=== PATIENT | male | born 1975 | race Two or more races ===

== ENCOUNTER 2017-07-31 05:05 | Emergency (ER) | payer OTHER ==
[~2017-07-31] VITALS: Ht 167.6 cm; Wt 117.5 kg
[2017-07-31 05:15] VITALS: BP 156/97
--- NOTE | 2017-07-31 05:24 | NUR ---
PT. ASHLEY BLEVINS ER BED 11
--- NOTE | 2017-07-31 05:25 | NUR ---
PT. PRESENTS TO ED WITH C/O COUGH AND BODY ACHES X 3 DAYS. PT. HX. DM, HTN. AAO X4, AMBULATORY WITH STEDAY GAIT. RESPIRATIONS ROOM AIR, EVEN AND UNLABORED. C/O NON PRODUCTIVE COUGH, BL LUNG CLEAR. VSS, ER MADE AWARE OF PT. STATUS.
--- NOTE | 2017-07-31 05:25 | NUR ---
Patient being evaluated by DR. LOUISE at bedside.
[2017-07-31] MEDS ORDERED: KETOROLAC 60 MG/2 ML VIAL IM ONE ×2 (05:40→05:52)
--- NOTE | 2017-07-31 06:10 | NUR ---
Patient discharged with v/s stable. Written and verbal after care instructions given and explained. Patient alert, oriented and verbalized understanding of instructions. Ambulatory with steady gait. All questions addressed prior to discharge. ID band removed. Patient advised to follow up with PMD. Rx of PREDNISOLONE 20 MG, MOTRIN 800 MG given. Patient educated on indication of medication including possible reaction and side effects. Opportunity to ask questions provided and answered.
[2017-07-31 06:11] VITALS: BP 143/72
== END 2017-07-31 06:10 | disposition home or self-care (01) ==
LOC: MED 05:05
DX: J11.1 Influenza due to unidentified influenza virus with other respiratory manifestations (principal); E11.9 Type 2 diabetes mellitus without complications; I10 Essential (primary) hypertension
CPT/HCPCS: 96372; 99283; J1885

== ENCOUNTER 2018-01-25 19:43 | Inpatient (IN) | payer OTHER ==
[~2018-01-25] VITALS: Ht 167.6 cm; Wt 121.7 kg
[2018-01-25 19:47] VITALS: BP 153/100
--- NOTE | 2018-01-25 19:50 | NUR ---
TO BED # 9 AMBULATORY, REPORT GIVEN TO LINDA HUTSON. Addendum: 01/25/18 at 2303 by TREASURE Amendment undone in ED - 01/25/18 at 2340 by TREASURE X-Ray at bedside.
--- NOTE | 2018-01-25 19:55 | NUR ---
PATIENT PRESENTS TO ED WITH LEFT KNEE CELLULITIS X5 DAYS. PATIENT STATES HE DID NOT HIT HIS KNEE ON ANYTHING. PATIENT STATES HE HAS NOT SCRATCHED THE SITE, BUT WAS IN THE SHOWER AND IT "STARTED OOZING" PATIENT STATES HE TOOK IBUPROFEN BEFORE COMING IN TODAY. PATIENT HAS HX OF DM BUT DOES NOT TAKE ANY MEDICATIONS. CURRENT BLOOD SUGAR IS 363. PT DENIES N/V/D; SKIN IS PINK/WARM/DRY; AAOX4 WITH EVEN AND STEADY GAIT; LUNGS CLEAR BL; HR EVEN AND REGULAR; PT DENIES ANY FEVER, CP, SOB, OR COUGH AT THIS TIME; PATIENT STATES PAIN OF 5/10 AT THIS TIME; VSS; PATIENT POSITIONED FOR COMFORT; HOB ELEVATED; BEDRAILS UP X1; BED DOWN. ER MD MADE AWARE OF PT STATUS.
--- NOTE | 2018-01-25 21:46 | NUR ---
Dr. Sawyer evaluating patient at bedside.
[2018-01-25] MEDS ORDERED: KETOROLAC 30 MG/ML VIAL IVP ONE (22:05)
[2018-01-25] MEDS ORDERED: NACL 0.9% 1,000 ML IV SCH (22:05)
[2018-01-25] MEDS ORDERED: ONDANSETRON 4 MG/2 ML VIAL IVP ONE (22:05)
[2018-01-25] MEDS ORDERED: VANCOMYCIN 1,000 MG in DEXTROSE 5% 250 ML IV ONE (22:05)
[2018-01-25] MEDS ORDERED: VANCOMYCIN 1,000 MG VIAL ONE (22:22)
--- NOTE | 2018-01-25 22:50 | NUR ---
Ultrasound at bedside.
[2018-01-25 22:58] LABS: BASOPHILS # (AUTO) 0.1 K/uL (0.00-0.22); BASOPHILS % (AUTO) 0.7 % (0.0-2.0); EOSINOPHILS # (AUTO) 0.1 K/uL (0-0.4); EOSINOPHILS % (AUTO) 0.9 % (0.0-4.0); HEMATOCRIT 29.8 % (36-52); HEMOGLOBIN 10.1 g/dL (12.0-18.0); LYMPHOCYTES # (AUTO) 1.6 K/uL (2.0-11.5); LYMPHOCYTES % (AUTO) 18.9 % (20.5-51.1); MEAN CORPUSCULAR HEMOGLOBIN 29 pg (27-31); MEAN CORPUSCULAR HGB CONC 34 g/dL (33-37); MEAN CORPUSCULAR VOLUME 85.2 fL (80-94); MONOCYTES # (AUTO) 0.8 K/uL (0.8-1.0); MONOCYTES % (AUTO) 9.2 % (1.7-9.3); NEUTROPHILS # (AUTO) 5.9 K/uL (1.8-7.7); NEUTROPHILS % (AUTO) 70.3 % (42.2-75.2); PLATELET COUNT (AUTO) 317 K/uL (140-450); RED CELL DISTRIBUTION WIDTH 14.4 % (11.6-13.7); WHITE BLOOD COUNT (AUTO) 8.4 K/uL (4.8-10.8)
--- NOTE | 2018-01-25 23:03 | NUR ---
X-Ray at bedside.
[2018-01-25 23:07] LABS: ANION GAP 10.7 (8-16); CARBON DIOXIDE 27.8 mmol/L (21-32); CREATININE 0.7 mg/dL (0.7-1.3); POTASSIUM 3.5 mmol/L (3.5-5.1)
[2018-01-25] MEDS ORDERED: ONDANSETRON 4 MG/2 ML VIAL IM/IVP PRN (23:10)
[2018-01-25] MEDS ORDERED: ACETAMINOPHEN 325 MG TAB PO PRN (23:10)
[2018-01-25] MEDS ORDERED: MORPHINE SULFATE 2 MG/ML SYR IVP PRN (23:10)
[2018-01-25] MEDS ORDERED: HYDROcodone/APAP 5/325 MG 1 TAB TAB PO PRN (23:10)
[2018-01-25] MEDS ORDERED: LORazepam 2 MG/ML VIAL IM/IVP PRN (23:10)
[2018-01-25] MEDS ORDERED: DOCUSATE SODIUM 100 MG GELCAP PO PRN (23:10)
[2018-01-25] MEDS ORDERED: ZOLPIDEM 5 MG TAB PO PRN (23:10)
[2018-01-25 23:13] LABS: ALBUMIN 2.3 g/dL (3.4-5.0); TOTAL BILIRUBIN 0.3 mg/dL (0.0-1.0)
--- NOTE | 2018-01-25 23:24 | NUR ---
Dr. Brice evaluating patient.
[2018-01-25 23:35] LABS: PROTHROMBIN TIME 10.3 secs (10.8-13.4)
[2018-01-25 23:46] LABS: MAGNESIUM 1.5 mg/dL (1.8-2.4); PHOSPHORUS 3.4 mg/dL (2.5-4.9); THYROID STIMULATING HORMONE 0.94 uIU/mL (0.34-3.74)
--- NOTE | 2018-01-25 23:46 | NUR ---
RECEIVED FROM ER PER JUAN. ABLE TO WALK FROM DOOR TO BED 2 . VERBALIZES WELL. NO SOB. DENIES ANY PAIN AT THIS TIME. CARE PLANS FOR THE NIGHT DISCUSSED WITH HIM. CALL LIGHT WITH IN REACH. ORIENTED TO ROOM AND CAREGIVERS. LEFT LEG WITH CELLULITIS. WITH CLOSED BLISTERS. NOTED WITH MULTIPLE PINPOINT SCARS TO LOWER EXTREMITIES. TELEMETRY MONITORING.
--- NOTE | 2018-01-25 23:56 | NUR ---
Pt report given to RAJESH HUTSON. Transfer of care at this time.
[2018-01-26] MEDS ORDERED: DEXTROSE 50% 50 ML SYR IVP PRN (00:10)
[2018-01-26] MEDS ORDERED: VANCOMYCIN PER PHARMACY MC PRN (00:15)
[2018-01-26] MEDS ORDERED: METOPROLOL 25 MG TAB PO SCH ×2 (00:20→00:45)
[2018-01-26] MEDS ORDERED: LISINOPRIL 10 MG TAB PO SCH ×3 (00:30→09:50)
[2018-01-26 00:38] VITALS: BP 152/89
[2018-01-26] MEDS: NACL 0.9% 1,000 ML IV SCH ×2 (00:56→15:48)
[2018-01-26] MEDS ORDERED: ALBUMIN HUMAN 5 % 250 ML IV SCH (01:00)
--- NOTE | 2018-01-26 02:35 | NUR ---
PT. SLEEPING AT THIS TIME. PROVIDED WITH SANDWICH EARLIER RT HUNGRY.PT. WITH HEATING PAD ORDER. WILL FAX REQUESTS FOR MEDICAL RECORDS FROM [facility] [place] AND [facility] [place] ORDERED.
[2018-01-26] MEDS ORDERED: PNEUMOCOCCAL VACCINE 23 MCG/0.5 ML VIAL IMVAC SCH (04:00)
[2018-01-26 04:23] VITALS: BP 156/89
[2018-01-26] MEDS ORDERED: DRY DRESSING TP PRN (04:30)
[2018-01-26] MEDS ORDERED: INTERDRY CLOTH TP SCH (04:30)
[2018-01-26] MEDS ORDERED: INTERDRY CLOTH TP PRN (04:30)
[2018-01-26 06:18] LABS: BASOPHILS % (AUTO) 0.3 % (0.0-2.0); EOSINOPHILS # (AUTO) 0.1 K/uL (0-0.4); HEMATOCRIT 30.5 % (36-52); HEMOGLOBIN 10.3 g/dL (12.0-18.0); LYMPHOCYTES # (AUTO) 1.3 K/uL (2.0-11.5); LYMPHOCYTES % (AUTO) 20.3 % (20.5-51.1); MEAN CORPUSCULAR HEMOGLOBIN 29 pg (27-31); MEAN CORPUSCULAR HGB CONC 34 g/dL (33-37); MEAN CORPUSCULAR VOLUME 84.9 fL (80-94); MONOCYTES # (AUTO) 0.6 K/uL (0.8-1.0); MONOCYTES % (AUTO) 9.8 % (1.7-9.3); NEUTROPHILS # (AUTO) 4.3 K/uL (1.8-7.7); NEUTROPHILS % (AUTO) 67.6 % (42.2-75.2); PLATELET COUNT (AUTO) 281 K/uL (140-450); RED BLOOD CELL COUNT(AUTO) 3.59 MIL/uL (4.20-6.10); RED CELL DISTRIBUTION WIDTH 14.3 % (11.6-13.7); WHITE BLOOD COUNT (AUTO) 6.4 K/uL (4.8-10.8)
[2018-01-26] MEDS: INSULIN LISPRO SLIDING SCALE 100 UNITS/ML VIAL SUBQ PRN ×4 (06:25→20:45)
[2018-01-26] MEDS: BLOOD GLUCOSE MONITORING 1 DEV DEV FS SCH ×4 (06:25→20:44)
--- NOTE | 2018-01-26 06:43 | NUR ---
PT.'S DRESSING TO OPEN WOUND LEFT LEG INTACT. CLEANSED WITH NS , PAT DRIED AND COVERED WITH GAUZE ORDERED. NO COMPLAINTS DONE. TELEMETRY MONITORING. BLOOD SUGAR AT THIS TIME 306 MG/DL PER FINGERSTICK. COVERED WITH REGULAR INSULIN. SLEPT WELL THIS SHIFT. NO COMPLAINTS DONE. DENIES ANY PAIN. JUST STATING "I AM HUNGRY " WHEN AWAKE. DIABETIC EDUCATION PROVIDED.
[2018-01-26 06:45] LABS: CARBON DIOXIDE 27.5 mmol/L (21-32); CREATININE 0.7 mg/dL (0.7-1.3); POTASSIUM 3.5 mmol/L (3.5-5.1)
[2018-01-26 06:55] LABS: MAGNESIUM 1.5 mg/dL (1.8-2.4); PHOSPHORUS 3.5 mg/dL (2.5-4.9)
[2018-01-26] MEDS ORDERED: MAG SULF 2000 MG/WATER PREMIX 50 ML IV ONE (07:20)
[2018-01-26] MEDS ORDERED: hydrALAZINE 20 MG/ML VIAL IVP PRN (07:20)
[2018-01-26] MEDS ORDERED: FUROSEMIDE 20 MG/2 ML VIAL IVP ONE (07:25)
--- NOTE | 2018-01-26 07:29 | NUR ---
RECEIVED REPORT FROM HUMAN RESOURCES SUPPORT SPECIALIST RN. PATIENT IS SLEEPING BUT AROUSABLE TO NAME. NO SIGNS AND SYMPTOMS OF ACUTE DISTRESS NOTED AT THIS TIME. HAS IV TO THE RIGHT FOREARM 20G INFUSING NS AT 60 ML/HR. SITE IS CLEAN, DRY, PATENT AND INTACT. HAS DRESSING TO THE LEFT LEG LATERAL TO THE KNEE, DRESSING IS CLEAN AND DRY. DISCUSSED PLAN OF CARE WITH PATIENT AND HE VERBALIZED UNDERSTANDING. BED IN LOWEST POSITION, SIDE RAILS UP X2, CALL LIGHT WITHIN REACH. WILL CONTINUE TO MONITOR.
[2018-01-26 08:00] VITALS: BP 144/90
[2018-01-26] MEDS: metFORMIN 500 MG TAB PO SCH ×2 (08:11→18:50)
--- NOTE | 2018-01-26 09:30 | NUR ---
CARBONATOR HAD TO REMOVE PATIENTS DRESSING TO PERFORM ULTRASOUND BEHIND THE KNEE. APPLIED NEW DRESSING. PATIENT TOLERATED WELL.
[2018-01-26] MEDS ORDERED: FUROSEMIDE 20 MG/2 ML VIAL IVP SCH (09:51)
[2018-01-26] MEDS ORDERED: metFORMIN 500 MG TAB PO SCH (09:51)
[2018-01-26] MEDS ORDERED: VANCOMYCIN 1,500 MG in DEXTROSE 5% 500 ML IV SCH (10:00)
[2018-01-26] MEDS: VANCOMYCIN 1,250 MG in NACL 0.9% 250 ML IV SCH ×2 (10:05→18:50)
[2018-01-26] MEDS: MAGNESIUM SULFATE 1GM in DEXTROSE 5% 100 ML PREMIX IV SCH ×2 (11:00→12:29)
[2018-01-26 12:00] VITALS: BP 167/100
--- NOTE | 2018-01-26 12:34 | NUR ---
HUNG PATIENTS MAG RIDER. IT WAS LATE DUE TO VANCO INFUSING PRIOR.
[2018-01-26] MEDS: NACL 0.9% IRR 250 ML BOTTLE IR SCH (13:53)
[2018-01-26] MEDS: DRY DRESSING TP SCH (13:53)
--- NOTE | 2018-01-26 14:40 | NUR ---
PATIENT RESTING IN BED. DENIES PAIN. HAS NO SIGNS AND SYMPTOMS OF ACUTE DISTRESS NOTED AT THIS TIME.
[2018-01-26 16:00] VITALS: BP 153/93
--- NOTE | 2018-01-26 17:50 | NUR ---
COLLECTED URINE FROM PATIENT.
[2018-01-26 18:11] LABS: APPEARANCE,URINE CLEAR (CLEAR); BILIRUBIN,URINE NEGATIVE (NEGATIVE); BLOOD, URINE NEGATIVE (NEGATIVE); COLOR,URINE YELLOW (YELLOW); LEUKOCYTE ESTERASE ,URINE NEGATIVE (NEGATIVE); NITRITE, URINE NEGATIVE (NEGATIVE); UGLUCOSE 2+ (NEGATIVE)
[2018-01-26 18:20] LABS: BARBITURATE, URINE NEG. ng/ml (NEG <=200); BENZODIAZEPINE, URINE NEG. ng/mL (NEG <=200); CANNABINOID, URINE NEG. ng/mL (NEG <=50); COCAINE, URINE NEG. ng/mL (NEG <=300); OPIATE, URINE NEG. ng/mL (NEG <=2000); PHENCYCLIDINE SCREEN,URINE NEG. ng/mL (NEG <=25); RBC,URINE 0-5 (RARE) /HPF (0-5); WBC,URINE 0-5 (RARE) /HPF (0-5)
--- NOTE | 2018-01-26 19:21 | NUR ---
ENDORSED PATIENT TO ANIMAL GENETICIST RN FOR CONTINUITY OF CARE. PATIENT IN STABLE CONDITION.
--- NOTE | 2018-01-26 19:30 | NUR ---
RECEIVED FROM AM RN IN BED AWAKE AND WATCHING TV. NO COMPLAINTS DONE. TELEMETRY MONITORING. DENIES PAIN AT THIS TIME. CARE PLANS FOR THE NIGHT DISCUSSED WITH HIM. A/O X 4. ROM X 4. ENCOURAGED TO CALL FOR ANY HELP HE MAY NEED. BED ALARM ON. DX. LEFT LEG CELLULITIS. IVF SITE TO RIGHT FOREARM INTACT AND NO INFILTRATION.
[2018-01-26 20:31] VITALS: BP 148/94
--- NOTE | 2018-01-26 22:00 | NUR ---
PT. STILL AWAKE AND WATCHING TV. ABLE TO USE CALL LIGHT FOR SIMPLE NEEDS. NO SOB. DENIES PAIN.
[2018-01-27] VITALS (7 sets, daily range): BP systolic 127–167; BP diastolic 68–97
--- NOTE | 2018-01-27 | NUR ---
SLEEPING WELL. NO RESTLESSNESS NOTED. CALL LIGHT WITH IN REACH. TELEMETRY MONITORING.
[2018-01-27] MEDS: VANCOMYCIN 1,250 MG in NACL 0.9% 250 ML IV SCH ×3 (00:13→16:45)
[2018-01-27] MEDS: NACL 0.9% IRR 250 ML BOTTLE IR SCH ×2 (00:13→16:16)
[2018-01-27] MEDS: NACL 0.9% 1,000 ML IV SCH (00:26)
--- NOTE | 2018-01-27 04:00 | NUR ---
PT. USING URINAL TO URINATE. NO COMPLAINTS DONE. ABLE TO VERBALIZE WELL. CALL LIGHT WITH IN REACH.
[2018-01-27] MEDS: BLOOD GLUCOSE MONITORING 1 DEV DEV FS SCH ×4 (06:01→21:17)
[2018-01-27] MEDS: INSULIN LISPRO SLIDING SCALE 100 UNITS/ML VIAL SUBQ PRN ×4 (06:02→21:39)
--- NOTE | 2018-01-27 06:11 | NUR ---
PT. ADMINISTERED HYDRALAZINE IVP 10 MG RT BP 167/95 AT 0443. PRESENTLY RE-ASSESSED BP AT 155/97. BLOOD SUGAR PER FINGERSTICK 300 MG/DL. ADMINISTERED RISS HUMALOG ORDERED SLEPT WELL THIS SHIFT. NO SOB. NO PAIN COMPLAINTS DONE THIS SHIFT. WOUND CULTURE FOR AEROBIC AND ANAROBIC SPECIMEN COLLECTED AND SENT TO LABORATORY.
--- NOTE | 2018-01-27 06:42 | NUR ---
PT. SLEEPING. CALL LIGHT WITH IN REACH . AM PERSONAL HYGIENE RENDERED. NO COMPLAINTS DONE. TELEMETRY MONITORING.
--- NOTE | 2018-01-27 07:15 | NUR ---
RECEIVED REPORT FROM THE CRM ANALYST NURSE AT BEDSIDE FOR CONTINUITY OF CARE. PT IS SLEEPING. PER CRM ANALYST PT IS AOX4, SR, AMBULATES WITH VERY LITTLE ASSIST, USES THE URINAL. SKIN L LEG CELLULITIS. PT HAS KPAD FOR THE LEG. IV ON FA 22G NS AT 60ML INFUSING. EMPTIED 600ML OF CLEAR PALE URINE. WILL CONTINUE TO ASSESS PT.
--- NOTE | 2018-01-27 07:40 | NUR ---
WOKE UP PT TO DO V/S. AOx4. INTRODUCED MYSELF AND UPDATED THE BOARD. PT V/S: BP IS SLIGHTLY ELEVATED 158/86. PT FELL ASLEEP WHILE DOING V/S. RESP 24 SNORING AND PERIODS OF HOLDING HIS BREATH. DENIES PAIN. EMPTIED ANOTHER 600ML OF CLEAR, PALE URINE.
[2018-01-27] MEDS: metFORMIN 500 MG TAB PO SCH ×2 (08:44→16:45)
[2018-01-27] MEDS: LISINOPRIL 10 MG TAB PO SCH (08:45)
--- NOTE | 2018-01-27 08:52 | NUR ---
PT SLEEPING. WOKE UP PT FOR MEDS. ADMINISTERED SCHEDULED MEDS INCLUDING VANCO. PT TOLERATED WELL. CLEARED HIS TRAY. ATE 100% OF BREAKFAST AND FINISHED A PITCHER OF WATER. REPLACED A FULL PITCHER OF WATER. NO COMPLAINTS AT THIS TIME. WILL CONTINUE TO MONITOR PT.
--- NOTE | 2018-01-27 09:25 | NUR ---
PATIENT HAS BEEN SCREENED AND CATEGORIZED HIGH NUTRITION RISK. PATIENT WILL BE SEEN WITHIN 1-2 DAYS OF ADMISSION. 01/25/18 01/27/[address]
[2018-01-27 09:53] LABS: BASOPHILS % (AUTO) 0.5 % (0.0-2.0); EOSINOPHILS # (AUTO) 0.1 K/uL (0-0.4); EOSINOPHILS % (AUTO) 1.9 % (0.0-4.0); HEMATOCRIT 33.1 % (36-52); HEMOGLOBIN 11.5 g/dL (12.0-18.0); LYMPHOCYTES # (AUTO) 1.2 K/uL (2.0-11.5); MEAN CORPUSCULAR HEMOGLOBIN 29 pg (27-31); MEAN CORPUSCULAR HGB CONC 35 g/dL (33-37); MEAN CORPUSCULAR VOLUME 83.4 fL (80-94); MONOCYTES # (AUTO) 0.3 K/uL (0.8-1.0); MONOCYTES % (AUTO) 5.8 % (1.7-9.3); NEUTROPHILS # (AUTO) 4.2 K/uL (1.8-7.7); NEUTROPHILS % (AUTO) 71.8 % (42.2-75.2); PLATELET COUNT (AUTO) 321 K/uL (140-450); RED BLOOD CELL COUNT(AUTO) 3.97 MIL/uL (4.20-6.10); RED CELL DISTRIBUTION WIDTH 14.6 % (11.6-13.7); WHITE BLOOD COUNT (AUTO) 5.9 K/uL (4.8-10.8)
[2018-01-27 10:09] LABS: ANION GAP 11.3 (8-16); CARBON DIOXIDE 28.2 mmol/L (21-32); CREATININE 0.8 mg/dL (0.7-1.3); POTASSIUM 3.5 mmol/L (3.5-5.1)
--- NOTE | 2018-01-27 10:20 | NUR ---
CHACE, WOUND CARE NURSE CAME AND SAW PT. CHACE RECOMMENDED I&D ON L CELLULITIS. PER US, 3.0 CM FLUID COLLECTION. IT IS OOZING. WILL LET MD. [place] [facility] [place]AME AND GAVE TO DR FERNANDEZ.
--- NOTE | 2018-01-27 10:43 | NUR ---
LING MIXON. CONTINUE WITH CURRENT REGIMEN.
--- NOTE | 2018-01-27 11:00 | NUR ---
WOUND CARE EVALUATION NOTES: REASON FOR EVALUATION: LLE CELLULITIS SKIN ASSESSMENT DONE ON THIS 42 Y/O MALE PATIENT ADMITTED TO [facility], WITH INITIAL DIAGNOSIS OF LLE CELLULITIS. NO PAST MEDICAL HISTORY AVAILABLE AND PT. DOEST WANT TO ANSWER ANY MEDICAL QUESTIONS. PT IS AAX4. ALL ABOVE INFORMATION WAS OBTAINED FROM THE ADMISSION H&P. WOUND CULTURE PENDING, WBC 5.9, H/H 11.5/33.1, GLUCOSE 383 AND ALBUMIN 2.8. SKIN WARM TO TOUCH WNL, +1 EDEMA TO BLE ,NO HAIR GROWTH AND BILATERAL PEDAL PULSES PRESENT. MULTIPLE BODY TATTOO. PLAN OF CARE DISCUSSED WITH PT AND PRIMARY NURSE. INTEGUMENTARY: TRUNK, BACK, UE AND LE: SKIN RASHES, NO C/O ITCHINESS LEFT MID THIGH TO LEFT KNEE AREA ERYTHEMA, INFECTED ABSCESS WITH 2X3.5 CM TO LEFT LATERAL KNEE, PURULENT DRAINAGE WITH MILD ODOR, C/O PAIN 2/10 BEARABLE. RECOMMENDATIONS: -SURGEON TO CONSULT FOR POSSIBLE I&D -CLEANSE LEFT KNEE ABSCESS WITH NS. PAT DRY, APPLY BACITRACIN , COVER WITH DRY DRESSING QD AND PRN IF SOILING. -TURN AND REPOSITION PATIENT Q2H -ASSESS AND MONITOR SKIN CONDITION DURING POSITION CHANGE -OFFLOAD BILATERAL HEELS BY PLACING PILLOWS UNDER CALVES AT ALL TIMES, UNLESS OTHERWISE CONTRAINDICATED -KEEP SKIN CLEAN AND DRY AT ALL TIMES. RECOMMENDATIONS DISCUSSED WITH PRIMARY RN WILL FOLLOW UP PATIENT Q 7 -10 DAYS AND PRN. PLEASE CONTACT WOUND CARE NURSE FOR ANY CONCERNS AND CHANGES IN WOUND CONDITION
[2018-01-27] MEDS ORDERED: MAG SULF 2000 MG/WATER PREMIX 50 ML IV ONE (11:20)
[2018-01-27] MEDS ORDERED: METOPROLOL 25 MG TAB PO SCH (11:30)
--- NOTE | 2018-01-27 12:00 | NUR ---
PT FINISHED LUNCH 95%. FINISHED ANOTHER PITCHER OF H20. REFILL DONE. PT WOULD LIKE TO TAKE A SHOWER. WILL ASK DR. BUSTOS INFILTRATED. WILL HAVE TO START ANOTHER IV. WILL WAIT AFTER LUNCH WHEN I DO THE WOUND CARE.
--- NOTE | 2018-01-27 14:35 | NUR ---
01/27/18 RD INITIAL ASSESSMENT COMPLETED PLEASE REFER TO NUTRITION ASSESSMENT UNDER CARE ACTIVITY FOR ESTIMATED NUTRITIONAL NEEDS. 1. CONTINUE CCHO 60 GM DIET TOLERATED 2. PROVIDE DIABETES EDUCATION FOR FOLLOW UP VISIT 3. RD TO FOLLOW-UP 3-5 DAYS, MODERATE RISK GUSTAVO BENDER, RD
--- NOTE | 2018-01-27 15:00 | NUR ---
CLINICAL DOCUMENTATION MANAGER GOT PT UP AND IN A CHAIR. CHANGED ALL LINENS. PT DOES NOT WANT TO USE THE KPAD. MAKES HIM "HOT". PT IS MS NOW. GOT HIM FRESH TOWELS AND FRESH GOWN AND BODY SOAP. PT IS IN THE BATHROOM AT THIS TIME. WILL CONTINUE TO MONITOR PT.
--- NOTE | 2018-01-27 15:10 | NUR ---
PT IN THE SHOWER.
[2018-01-27] MEDS: DRY DRESSING TP SCH (16:00)
--- NOTE | 2018-01-27 16:30 | NUR ---
AFTER SHOWER, WOUND CARE DONE. IV RESTARTED. NEW IV SITE L HAND 22G. IVF INFUSING. PT TOLERATED WELL. WILL CONTINUE TO MONITOR PT.
--- NOTE | 2018-01-27 16:45 | NUR ---
VANCO GIVEN. METFORMIN GIVEN. INSULIN COVERAGE 4U GIVEN FOR BS 217. PT TOLERATED WELL. WILL CONTINUE TO MONITOR PT.
--- NOTE | 2018-01-27 19:25 | NUR ---
ENDORSED PT TO THE NEUROPATHOLOGIST NURSE AT BEDSIDE FOR CONTINUITY OF CARE. PT IN STABLE CONDITION.
--- NOTE | 2018-01-27 19:26 | NUR ---
RECEIVED REPORT FROM THE DAY SHIFT NURSE ROMINA-RN AT BEDSIDE. PT IS SLEEPING. PER DAY SHIFT NURSE PT IS AOX4, ON ROOM AIR, AMBULATES WITH VERY LITTLE ASSIST, USES THE URINAL. IV ON FA 22G NS AT 60ML/HR. SKIN L LEG CELLULITIS-WRAPPED IN DRESSING. PT HAS K-PAD FOR THE LEG. UPDATED WHITE BOARD. BED IN LOWEST POSITION, BED BREAKS ON, BOTH SIDE RAILS UP. BED SIDE TABLE AND CALL LIGHT WITHIN REACH. WILL CONTINUE TO MONITOR.
--- NOTE | 2018-01-27 20:00 | NUR ---
VITAL SIGNS TAKEN AND TOLERATED WELL. NO S/S OF RESPIRATORY DISTRESS OR DISCOMFORT NOTED AT THIS TIME. WILL CONTINUE TO MONITOR.
--- NOTE | 2018-01-27 20:40 | NUR ---
BLOOD GLUCOSE 206- WILL ADMINISTER INSULIN.
[2018-01-27] MEDS: METOPROLOL 25 MG TAB PO SCH (21:20)
[2018-01-27] MEDS: MAGNESIUM OXIDE 400 MG TAB PO SCH (21:20)
--- NOTE | 2018-01-27 21:25 | NUR ---
SCHEDULED MEDICATION GIVEN AND TOLERATED WELL. NO S/S OF RESPIRATORY DISTRESS OR DISCOMFORT. WILL CONTINUE TO MONITOR.
--- NOTE | 2018-01-27 21:40 | NUR ---
INSULIN GIVEN PER PROTOCOL. PT TOLERATED WELL. NO S/S OF RESPIRATORY DISTRESS OR DISCOMFORT NOTED AT THIS TIME. PT RETURNED BACK TO SLEEP. WILL CONTINUE TO MONITOR.
[2018-01-28] VITALS: BP 164/97
--- NOTE | 2018-01-28 | NUR ---
VITAL SIGNS TAKEN AND TOLERATED WELL. NO S/S OF RESPIRATORY DISTRESS OR DISCOMFORT NOTED AT THIS TIME. PT RETURNED BACK TO SLEEP. WILL CONTINUE TO MONITOR.
[2018-01-28] MEDS: NACL 0.9% 1,000 ML IV SCH ×2 (01:17→17:48)
[2018-01-28] MEDS: NACL 0.9% IRR 250 ML BOTTLE IR SCH ×2 (01:18→13:00)
[2018-01-28] MEDS: VANCOMYCIN 1,250 MG in NACL 0.9% 250 ML IV SCH ×3 (01:18→17:28)
--- NOTE | 2018-01-28 01:20 | NUR ---
SCHEDULED MEDICATION GIVEN AND TOLERATED WELL. NO S/S OF RESPIRATORY DISTRESS OR DISCOMFORT NOTED AT THIS TIME. PT CONTINUES TO SLEEP. WILL CONTINUE TO MONITOR.
--- NOTE | 2018-01-28 03:00 | NUR ---
PT CONTINUES TO SLEEP. NO S/S OF RESPIRATORY DISTRESS OR DISCOMFORT. WILL CONTINUE TO MONITOR.
[2018-01-28] MEDS: BLOOD GLUCOSE MONITORING 1 DEV DEV FS SCH ×4 (05:25→20:51)
--- NOTE | 2018-01-28 05:30 | NUR ---
BLOOD GLUCOSE 217. WILL ADMINISTER INSULIN.
[2018-01-28 06:22] LABS: T4 (THYROXINE) 6.6 ug/dL (4.5-12.0)
[2018-01-28] MEDS: INSULIN LISPRO SLIDING SCALE 100 UNITS/ML VIAL SUBQ PRN ×3 (06:48→17:30)
--- NOTE | 2018-01-28 06:48 | NUR ---
INSULIN COVERAGE GIVEN AND TOLERATED WELL. NO S/S OF RESPIRATORY DISTRESS OR DISCOMFORT NOTED AT THIS TIME. WILL CONTINUE TO MONITOR.
--- NOTE | 2018-01-28 07:35 | NUR ---
ENDORSED PT CARE TO DAY SHIFT NURSE CALEB FOR CONTINUITY OF CARE.
--- NOTE | 2018-01-28 07:36 | NUR ---
RECEIVED PT FROM PM NURSE FOR THE CONTINUITY OF CARE.N INTRODUCED SELF AND UPDATED BOARD. ALL SAFETY MEASURE IN PLACE. WILL CONTINUE TO MONITOR PT.
[2018-01-28 07:39] LABS: BASOPHILS % (AUTO) 0.1 % (0.0-2.0); EOSINOPHILS # (AUTO) 0.2 K/uL (0-0.4); EOSINOPHILS % (AUTO) 2.7 % (0.0-4.0); HEMOGLOBIN 12.1 g/dL (12.0-18.0); LYMPHOCYTES # (AUTO) 1.6 K/uL (2.0-11.5); LYMPHOCYTES % (AUTO) 23.5 % (20.5-51.1); MEAN CORPUSCULAR HEMOGLOBIN 29 pg (27-31); MEAN CORPUSCULAR HGB CONC 36 g/dL (33-37); MEAN CORPUSCULAR VOLUME 82.5 fL (80-94); MONOCYTES # (AUTO) 0.5 K/uL (0.8-1.0); MONOCYTES % (AUTO) 7.9 % (1.7-9.3); NEUTROPHILS # (AUTO) 4.4 K/uL (1.8-7.7); NEUTROPHILS % (AUTO) 65.8 % (42.2-75.2); PLATELET COUNT (AUTO) 420 K/uL (140-450); RED BLOOD CELL COUNT(AUTO) 4.12 MIL/uL (4.20-6.10); WHITE BLOOD COUNT (AUTO) 6.8 K/uL (4.8-10.8)
[2018-01-28 08:00] VITALS: BP 161/85
[2018-01-28 08:18] LABS: ANION GAP 11.2 (8-16); CARBON DIOXIDE 29.4 mmol/L (21-32); CREATININE 0.6 mg/dL (0.7-1.3); POTASSIUM 3.6 mmol/L (3.5-5.1)
[2018-01-28] MEDS: MAGNESIUM OXIDE 400 MG TAB PO SCH ×2 (09:16→20:23)
[2018-01-28] MEDS: metFORMIN 500 MG TAB PO SCH ×2 (09:17→17:28)
[2018-01-28] MEDS: METOPROLOL 25 MG TAB PO SCH ×2 (09:17→20:23)
[2018-01-28] MEDS: LISINOPRIL 10 MG TAB PO SCH (09:20)
--- NOTE | 2018-01-28 09:30 | NUR ---
ADMINISTERED MEDS ORDERED . PT ASKED FOR PAIN MEDS, DENIES ANY PAIN. PT HAS THE CELLULITIS OF THE LEFT LEG. INSTRUCTED PT TO USE CALL LIGHT IF HE NEEDS ANY HELP. PT STATES HE CAN AMBULATE, INSTRUCTED HIM TO ASK FOR HELP EVEN IF HE CAN GO TO RESTROOM. FALL RISK PRECAUTION ON PLACE. BED AT LOW POSITION. SIDE RAILS UPX2. WILL CONTINUE TO MONITOR PT.
--- NOTE | 2018-01-28 11:30 | NUR ---
CHECKED ON PT. PT SLEEPING AT THIS TIME. NO SIGN OF DISTRESS. BS NOTED. NEEDS INSULIN. ALL SAFETY MEASURE IN PLACE . WILL CONTINUE TO MONITOR PT.
[2018-01-28] MEDS: DRY DRESSING TP SCH (13:00)
[2018-01-28] MEDS: BACITRACIN OINT 15000 UNITS/30 GM TUBE TP SCH (13:00)
--- NOTE | 2018-01-28 13:40 | NUR ---
CHANGED THE WOUND DRESSING ORDERED PER WOUND NURSE INSTRUCTION. WOUND HAS MILD ODOR,MEDIUM SS DRAINAGE, BUT THE BED AROUND THE WOUND IS PINKISH. PT TOLERATED WELL DRESSING CHANGE. NO COMPLAIN OF PAIN. LOWERED THE BED, RAISED THE SIDE RAILS UPX2. PER PT, WOUND IS LESS DRAINING THAN YESTERDAY. WILL CONTINUE TO MONITOR THE PT.
[2018-01-28 16:00] VITALS: BP 150/88
--- NOTE | 2018-01-28 16:00 | NUR ---
CHECKED ON PT. BS 346. ADMINISTERED 8 UNITS. REQUIRES INSULIN ON SLIDING SCALE. NO SIGN OF DISTRESS. WILL CONTINUE TO MONITOR THE PT.
--- NOTE | 2018-01-28 17:34 | NUR ---
ADMINISTERED VANCOMYCIN TO PT ORDERED. PT TOLERATED WELL. PT SLEEP AT THIS TIME. DENIES ANY PAIN. ASKED PTB TO CHANGE THE POSITION SO THAT IV LINE REMAINS INTACT, PT SLEEPING WITH IV UNDERNEATH . PT VERBALIZED UNDERSTANDING. ALL SAFETY MEASURE IN PLACE. WILL CONTINUE TO MONITOR PT.
--- NOTE | 2018-01-28 19:05 | NUR ---
ENDORSED PT TO PM NURSE. PT STABLE AT THIS TIME.
--- NOTE | 2018-01-28 19:06 | NUR ---
REPORT RECEIVED FROM AM NURSE. PT IN STABLE CONDITION. AAOX4. INTRODUCED SELF TO PT AND BOARD UPDATED. SAFETY MEASURES IN PLACE. BED LOCKED IN LOW POSITION. CALL SANTANA WITHIN REACH. WILL CONTINUE TO MONITOR.
--- NOTE | 2018-01-28 20:20 | NUR ---
PM MEDS GIVEN. PT TOLERATED WELL.
--- NOTE | 2018-01-28 21:50 | NUR ---
OBTAINED CONSENT FOR PROCEDURE WITH DR. BASHIR FOR INCISION AND DRAINAGE OF ABSCESS OF LEFT LEG.
--- NOTE | 2018-01-29 00:15 | NUR ---
VS STABLE. PT NOT IN ANY ACUTE DISTRESS. PT ASLEEP BUT AROUSABLE.
[2018-01-29] MEDS: VANCOMYCIN 1,250 MG in NACL 0.9% 250 ML IV SCH ×3 (01:28→16:55)
[2018-01-29] MEDS: NACL 0.9% IRR 250 ML BOTTLE IR SCH ×2 (01:32→13:00)
--- NOTE | 2018-01-29 03:15 | NUR ---
PT ASLEEP RIGHT LATERAL. CHEST EXPANSION VISIBLE. WILL CONTINUE TO MONITOR.
--- NOTE | 2018-01-29 05:15 | NUR ---
PT ASLEEP CHANGED POSITION TO LEFT LATERAL. PT NOT IN ANY ACUTE DISTRESS.
[2018-01-29] MEDS: BLOOD GLUCOSE MONITORING 1 DEV DEV FS SCH ×4 (06:28→20:24)
[2018-01-29] MEDS: INSULIN LISPRO SLIDING SCALE 100 UNITS/ML VIAL SUBQ PRN ×2 (06:43→21:38)
[2018-01-29 07:01] LABS: BASOPHILS % (AUTO) 0.2 % (0.0-2.0); EOSINOPHILS # (AUTO) 0.2 K/uL (0-0.4); HEMATOCRIT 34.8 % (36-52); HEMOGLOBIN 12.2 g/dL (12.0-18.0); LYMPHOCYTES # (AUTO) 1.9 K/uL (2.0-11.5); LYMPHOCYTES % (AUTO) 23.8 % (20.5-51.1); MEAN CORPUSCULAR HEMOGLOBIN 29 pg (27-31); MEAN CORPUSCULAR HGB CONC 35 g/dL (33-37); MEAN CORPUSCULAR VOLUME 82.3 fL (80-94); MONOCYTES # (AUTO) 0.4 K/uL (0.8-1.0); MONOCYTES % (AUTO) 5.2 % (1.7-9.3); NEUTROPHILS # (AUTO) 5.3 K/uL (1.8-7.7); NEUTROPHILS % (AUTO) 67.8 % (42.2-75.2); PLATELET COUNT (AUTO) 407 K/uL (140-450); RED BLOOD CELL COUNT(AUTO) 4.23 MIL/uL (4.20-6.10); RED CELL DISTRIBUTION WIDTH 14.7 % (11.6-13.7); WHITE BLOOD COUNT (AUTO) 7.8 K/uL (4.8-10.8)
--- NOTE | 2018-01-29 07:10 | NUR ---
REPORT GIVEN TO AM NURSE. PT IN STABLE CONDITION.
--- NOTE | 2018-01-29 07:15 | NUR ---
RECEIVED PT FROM SPORTS LAWYER NURSEMOISES, PT IS ASLEEP LYING ON THE BED AND SIDE RAILS ARE UP AND CALL LIGHT WITHIN REACH. PT HAS AN IV LINE ON THE LEFT HAND G.22, INTACT WITH NS RUNNING AT 60ML/HR. PT HAS A LEFT KNEE ABSCESS AND IS SCHEDULED FOR AN I&D TODAY PER SPORTS LAWYER NURSE ENDORSEMENT. RESPIRATIONS EVEN AND NO SIGN OF DISTRESS NOTED. WILL CONTINUE TO MONITOR.
[2018-01-29 07:44] LABS: ANION GAP 6.7 (8-16); CARBON DIOXIDE 29.8 mmol/L (21-32); CREATININE 0.7 mg/dL (0.7-1.3); POTASSIUM 3.5 mmol/L (3.5-5.1)
[2018-01-29] MEDS: metFORMIN 500 MG TAB PO SCH ×2 (09:00→16:54)
[2018-01-29] MEDS: MAGNESIUM OXIDE 400 MG TAB PO SCH (09:00)
[2018-01-29] MEDS: LISINOPRIL 10 MG TAB PO SCH (09:01)
[2018-01-29] MEDS: METOPROLOL 25 MG TAB PO SCH ×2 (09:01→20:23)
[2018-01-29] MEDS: DEXT 5% / NACL 0.45% 1,000 ML IV SCH (11:20)
--- NOTE | 2018-01-29 11:44 | NUR ---
OR NURSE, PAVAN TOOK THE OPT AND WAS BROUGHT TO THE OR FOR THE I&D PROCEDURE. VITAL SIGNS TAKEN AND IS STABLE. NO SIGN OF DISTRESS NOTED ON THE PT.
--- NOTE | 2018-01-29 11:45 | NUR ---
PT WAS TAKEN BY LUCIO BROWNE NURSE AND WAS BROUGHT TO OR FOR THE INCISION AND DEBRIDEMENT OF THE LEFT KNEE. PT'S BLOOD GLUCOSE CHECK DONE RESULT IS 169. VITAL SIGNS TAKEN AND BP IS 161/90, RESPIRATION IS 18, O2 SAT IS AT 99% AND TEMP. IS AT 96.7. NO SIGN OF DISTRESS NOTED ON THE PT. PT HAS A NS RUNNING AT 60 ML/HR ON HIS LEFT HAND G. 22. PRE-OPERATIVE CHECKLIST DONE AND PT'S CONSENT WAS SIGNED BY THE PT AND IS IN THE CHART.
--- NOTE | 2018-01-29 12:10 | NUR ---
CASE MANAGEMENT PERSON CALLED AND INFORMED THAT THE PT WAS ACCPETED IN [facility] IN RM 9-A AND ACCEPTING PHYSICIAN IS DR. HARPER. ACKNOWLEDGED INFORMATION.
[2018-01-29] MEDS ORDERED: fentaNYL 0.05 MG/ML VIAL ONE (12:31)
[2018-01-29] MEDS ORDERED: MIDAZOLAM 2 MG/2 ML VIAL ONE (12:31)
[2018-01-29] MEDS ORDERED: MEPERIDINE 50 MG/ML SYR ONE (12:32)
[2018-01-29] MEDS ORDERED: SEVOFLURANE 250 ML BTL INH ONE (12:35)
[2018-01-29] MEDS ORDERED: SUCCINYLCHOLINE CHLORIDE 200 MG/10 ML VIAL IVP ONE (12:35)
[2018-01-29] MEDS ORDERED: PROPOFOL 200 MG/20 ML VIAL IV ONE (12:35)
[2018-01-29] MEDS: BACITRACIN OINT 15000 UNITS/30 GM TUBE TP SCH (13:00)
[2018-01-29] MEDS: DRY DRESSING TP SCH (13:00)
[2018-01-29] MEDS: NACL 0.9% 1,000 ML IV SCH ×2 (13:09→20:47)
[2018-01-29] MEDS ORDERED: ONDANSETRON 4 MG/2 ML VIAL IVP PRN (13:10)
[2018-01-29] MEDS ORDERED: BLOOD GLUCOSE MONITORING 1 DEV DEV FS SCH (13:10)
[2018-01-29] MEDS ORDERED: diphenhydrAMINE 50 MG/ML VIAL IVP PRN (13:10)
[2018-01-29] MEDS ORDERED: MEPERIDINE 25 MG/ML SYR IVP PRN (13:10)
[2018-01-29] MEDS ORDERED: HYDROmorphone 1 MG/ML AMP IVP PRN (13:10)
[2018-01-29] MEDS ORDERED: HYDROGEN PEROXIDE 3% 240 ML BTL TP ONE (13:12)
--- NOTE | 2018-01-29 14:30 | NUR ---
PT IS BACK TO ROOM ENDORSED BY OR NURSE, PAVAN, VITAL SIGNS TAKEN AND IS STABLE. NO SIGN OF DISTRESS NOTED. LEFT KNEE HAS A DRESSING IN PLACE. WILL MONITOR.
--- NOTE | 2018-01-29 14:45 | NUR ---
Industrial Engineer Note: I met with patient and spoke with him regarding tentative discharge plan to snf for iv/s and wound care. Per patient, he is in agreement with transfer to short term snf placement. He stated he would like to be transfer to a snf located in [place], [place]. I faxed inquiry to [facility], phone number . Per Jessica from [facility] / , patient has been accepted and can go to room 9A today, if patient is discharged, accepting physician is , per Jessica, she can arrange transportation for patient, charge nurse Bharathi made aware.
--- NOTE | 2018-01-29 15:12 | NUR ---
REPORTED TO DR. LOZADA THAT THE PT'S MG LEVEL IS LOW, 1.5, DR. LOZADA ACKNOWLEDGED AND SAID THAT SHE WILL PUT AN ORDER.
[2018-01-29] MEDS ORDERED: MAG SULF 2000 MG/WATER PREMIX 50 ML IV SCH (17:45)
--- NOTE | 2018-01-29 17:50 | NUR ---
PT HAS AN ORDERED MG BUT [facility] AVAIL[facility] MG [facility] PHARMACY IS ALREADY CLOSED. INFORMED CHARGE NURSE, NORA OF THE MG AND CHARGED NURSE SAID TO INFORM SENIOR FORMULATION SCIENTIST.
--- NOTE | 2018-01-29 18:40 | NUR ---
INFORMED BENJAMIN THAT THE PT HAS A MAGNESIUM ORDERED BUT NO MAGNESIUM AVAILABLE IN [facility] AND THAT PHARMACY IS ALREADY CLOSED. NURSE HEDGE FUND TRADER SAID THAT HE WILL BRING MAGNESIUM.
[2018-01-29] MEDS ORDERED: MAGNESIUM SULFATE 50% 1000 MG/2 ML VIAL IV ONE (19:22)
--- NOTE | 2018-01-29 19:40 | NUR ---
ENDORSED PT TO SACK SEWER NURSEEBER FOR CONTINUITY OF CARE. PT STILL HAS AN ONGOING VANCOMYCIN IV PB RUNNING. PT'S MAGNESIUM WAS HANDED TO RN, EBER. PT IS STABLE AT THIS TIME.
--- NOTE | 2018-01-29 19:45 | NUR ---
RECEIVED REPORT FROM DAY SHIFT RN, PATIENT SLEEPING IN BED, EASY TO AROUSE, NO S/S OF DISTRESS NOTED, RESPIRATION EVEN AND UNLABORED, ON ROOM AIR. IV PATENT AND INTACT, INFUSING FLUIDS WELL. DRESSING TO THE LEFT LEG CLEAN AND INTACT, PLAN OF CARE DISCUSSED, PATIENT VERBALIZED UNDERSTANDING. CALL LIGHT WITHIN REACH, SAFETY MEASURE ENSURED, WILL CONTINUE TO MONITOR.
[2018-01-29] MEDS ORDERED: LEVOFLOXACIN 750 MG/D5W PREMIX 150 ML IV SCH (20:00)
--- NOTE | 2018-01-29 22:05 | NUR ---
MAGNESIUM FINISHED. PATIENT TOLERATED WELL. WILL CONTINUE TO MONITOR.
[2018-01-29] MEDS ORDERED: NYSTATIN POW 100 MU/GM 15 GM BTL TP PRN (23:05)
[2018-01-29] MEDS ORDERED: Z-GUARD PASTE TP PRN (23:05)
[2018-01-30 00:02] VITALS: BP 140/67
[2018-01-30] MEDS: NYSTATIN POW 100 MU/GM 15 GM BTL TP SCH ×2 (00:24→13:03)
--- NOTE | 2018-01-30 00:25 | NUR ---
MYCOSTATIN NOT AVAILABLE, [employer]AT[employer] UNABLE TO GET THE MEDICATION.
[2018-01-30] MEDS: NACL 0.9% IRR 250 ML BOTTLE IR SCH ×2 (00:41→12:52)
--- NOTE | 2018-01-30 00:42 | NUR ---
I&D DONE ON 01/29. DR. BASHIR ORDERED TO IRRIGATE WOUND STARTING FROM 01/30 BIDWC.
[2018-01-30] MEDS: Z-GUARD PASTE TP SCH ×2 (00:51→12:55)
--- NOTE | 2018-01-30 03:09 | NUR ---
PATIENT IS SLEEPING, NO S/S OF DISTRESS NOTED, RESPIRATION EVEN AND UNLABORED, ON ROOM AIR. CALL LIGHT WITHIN REACH, SAFETY MEASURE ENSURED, WILL CONTINUE TO MONITOR.
[2018-01-30] MEDS: DEXT 5% / NACL 0.45% 1,000 ML IV SCH (04:12)
--- NOTE | 2018-01-30 06:06 | NUR ---
NO CHANGE IN CONDITION, PATIENT IS SLEEPING, NO S/S OF DISTRESS NOTED, RESPIRATION EVEN AND UNLABORED, ON ROOM AIR. CALL LIGHT WITHIN REACH, SAFETY MEASURE ENSURED, WILL CONTINUE TO MONITOR.
[2018-01-30] MEDS: BLOOD GLUCOSE MONITORING 1 DEV DEV FS SCH ×2 (06:28→11:37)
[2018-01-30 06:49] LABS: BASOPHILS % (AUTO) 0.2 % (0.0-2.0); EOSINOPHILS # (AUTO) 0.2 K/uL (0-0.4); EOSINOPHILS % (AUTO) 2.5 % (0.0-4.0); HEMATOCRIT 34.4 % (36-52); HEMOGLOBIN 12.1 g/dL (12.0-18.0); LYMPHOCYTES # (AUTO) 1.7 K/uL (2.0-11.5); LYMPHOCYTES % (AUTO) 20.4 % (20.5-51.1); MEAN CORPUSCULAR HEMOGLOBIN 29 pg (27-31); MEAN CORPUSCULAR HGB CONC 35 g/dL (33-37); MONOCYTES # (AUTO) 0.5 K/uL (0.8-1.0); MONOCYTES % (AUTO) 6.6 % (1.7-9.3); NEUTROPHILS # (AUTO) 5.8 K/uL (1.8-7.7); NEUTROPHILS % (AUTO) 70.3 % (42.2-75.2); PLATELET COUNT (AUTO) 447 K/uL (140-450); RED BLOOD CELL COUNT(AUTO) 4.15 MIL/uL (4.20-6.10); RED CELL DISTRIBUTION WIDTH 14.6 % (11.6-13.7); WHITE BLOOD COUNT (AUTO) 8.2 K/uL (4.8-10.8)
[2018-01-30 07:00] LABS: ANION GAP 9.7 (8-16); CARBON DIOXIDE 30.2 mmol/L (21-32); CREATININE 0.7 mg/dL (0.7-1.3); POTASSIUM 3.9 mmol/L (3.5-5.1)
[2018-01-30 07:09] LABS: MAGNESIUM 1.9 mg/dL (1.8-2.4); PHOSPHORUS 4.1 mg/dL (2.5-4.9)
--- NOTE | 2018-01-30 07:23 | NUR ---
ENDORSED PLAN OF CARE TO DAY SHIFT RN, PATIENT IS IN STABLE CONDITION.
--- NOTE | 2018-01-30 07:23 | NUR ---
RECEIVED BEDSIDE REPORT FROM RESIDENTIAL SERVICE TECHNICIAN NURSE EBER, PT RESTING IN BED, V/S WITHIN PT BASELINE, IV IN L H 22 G RUNNING AT 60 ML. EXPLAINED PLAN OF CARE, UPDATED BOARD, CALL LIGHT WITH IN REACH.
[2018-01-30 08:00] VITALS: BP 157/90
[2018-01-30] MEDS: METOPROLOL 25 MG TAB PO SCH (08:46)
[2018-01-30] MEDS: metFORMIN 500 MG TAB PO SCH (08:47)
[2018-01-30] MEDS: LISINOPRIL 10 MG TAB PO SCH (08:47)
[2018-01-30] MEDS ORDERED: VANCOMYCIN PER PHARMACY MC PRN (09:50)
--- NOTE | 2018-01-30 10:30 | NUR ---
PT SLEEPING NO SIGNS OF DISTRESS. WILL CONTINUE TO MONITOR.
[2018-01-30] MEDS: INSULIN LISPRO SLIDING SCALE 100 UNITS/ML VIAL SUBQ PRN (12:16)
--- NOTE | 2018-01-30 12:16 | NUR ---
Fighter Pilot Note: I faxed inquiry to [facility] per 's request, director Rolanda soto. Per Inés from [facility], patient can go to room 205C today anytime, accepting physician is . Per foster care case manager Yeni patient can be transported via wheelchair transportation. Per Inés, she will arrange wheelchair transportation for patient, foster care case manager Yeni soto. Addendum: 01/30/18 at 1219 by Lore BIRD Inés stated she will call foster care case manager Yeni and provide her with shrimp picker time of transportation, Yeni soto.
--- NOTE | 2018-01-30 12:38 | NUR ---
CM NOTE PER RUTHIE RN, PATIENT IS ABLE TO SIT AND STABLE TO BE TRANSPORTED ON A WHEELCHAIR. RECEIVED CALL FROM FERNANDO OF [facility] AND SHE STATED THAT PATIENT WILL BE PICKED UP BY [facility] BETWEEN 1330 AND 1400 TIME TODAY GOING TO [facility], NUMBER TO CALL FOR REPORT # [phone]. RUTHIE HUTSON AWARE.
[2018-01-30] MEDS: DRY DRESSING TP SCH (12:53)
[2018-01-30] MEDS: BACITRACIN OINT 15000 UNITS/30 GM TUBE TP SCH (12:55)
[2018-01-30] MEDS ORDERED: VANCOMYCIN 1,250 MG in NACL 0.9% 250 ML IV SCH (13:00)
[2018-01-30] MEDS ORDERED: LISI10TA11 PO (13:16)
[2018-01-30] MEDS ORDERED: GLU500 PO (13:16)
[2018-01-30] MEDS ORDERED: METO50TA99 PO (13:16)
[2018-01-30] MEDS ORDERED: VANC1PLA7 IV (13:17)
[2018-01-30 13:37] VITALS: BP 157/90
--- NOTE | 2018-01-30 16:41 | NUR ---
D/C BOTH IV IN LEFT ARM, BOTH CATH INTACT, CUTE WRIST BANDS, PT STABLE, LEFT VIA WC TO SNF.
[2018-01-30 17:22] VITALS: BP 130/62
[2018-01-30] MEDS ORDERED: METOPROLOL 50 MG TAB PO SCH (21:00)
[2018-01-31] MEDS ORDERED: LACTOBACILLUS RHAMNOSUS GG 1 EACH CAP PO SCH (09:00)
== END 2018-01-30 16:21 | DRG 579 ==
LOC: MED 19:43 → MTU 23:13
PROVIDERS: ADMIT Family Medicine; ATTEND Family Medicine
PROC: 3E0234Z Introduction of Serum, Toxoid and Vaccine into Muscle, Percutaneous Approach (ICD-10-PCS; 2018-01-26)
PROC: 0J9P0ZZ Drainage of Left Lower Leg Subcutaneous Tissue and Fascia, Open Approach (ICD-10-PCS; principal; 2018-01-29 12:05)
DX: L02.416 Cutaneous abscess of left lower limb (principal); E43 Unspecified severe protein-calorie malnutrition; Z68.41 Body mass index [BMI] 40.0-44.9, adult; E83.42 Hypomagnesemia; L03.116 Cellulitis of left lower limb; E11.65 Type 2 diabetes mellitus with hyperglycemia; I10 Essential (primary) hypertension; D64.9 Anemia, unspecified; F15.10 Other stimulant abuse, uncomplicated; M17.12 Unilateral primary osteoarthritis, left knee; Z23 Encounter for immunization
CPT/HCPCS: 36415; 71045; 73562; 76881; 80048; 80053; 80202; 80305; 81001; 82040; 82948; 83036; 83605; 83735; 83880; 84100; 84134; 84436; 84443; 84479; 84484; 85025; 85610; 85730; 86140; 87040; 87070; 87075; 87081; 87186; 87205; 88304; 90732; 93005; 93925; 93971; 96365; 96375; 99285; G0482; J0330; J0360; J1644; J1815; J1885; J1940; J1956; J2175; J2250; J2405; J2704; J3010; J3370; J3475; J7030; J7060; P9041; Q0092

== ENCOUNTER 2019-09-13 11:33 | Emergency (ER) | payer OTHER ==
[~2019-09-13] VITALS: Ht 167.6 cm; Wt 108.9 kg
[~2019-09-13 11:33] MED LIST: GLU500 PO; LISI10TA11 PO; METO50TA99 PO; VANC1PLA7 IV
[2019-09-13 11:43] VITALS: BP 174/81
--- NOTE | 2019-09-13 12:35 | NUR ---
PT AMB TO BED 10.
--- NOTE | 2019-09-13 12:38 | NUR ---
43 Y/O M C/C LEFT EARACHE X3 DAYS. PER PT BLOOD DISCHARGE TWO DAYS AGO AND UNABLE TO HEAR. NO DISCHARGE NOTED ON ASSESSMENT. DENIES TRAUMA. PT NKA. HX HTN,DM. RX LISINOPRIL,METFORMIN. NO N/V/D. SIDE RAIL X1.
[2019-09-13 13:01] VITALS: BP 174/81
--- NOTE | 2019-09-13 13:01 | NUR ---
Patient discharged with v/s stable. Written and verbal after care instructions given and explained. Patient alert, oriented and verbalized understanding of instructions. Ambulatory with steady gait. All questions addressed prior to discharge. ID band removed. Patient advised to follow up with PMD. Rx of AUGMENTIN, MOTRIN given. Patient educated on indication of medication including possible reaction and side effects. Opportunity to ask questions provided and answered.
== END 2019-09-13 13:01 | disposition home or self-care (01) ==
LOC: MED 11:33
DX: H66.92 Otitis media, unspecified, left ear (principal); I10 Essential (primary) hypertension; E11.9 Type 2 diabetes mellitus without complications
CPT/HCPCS: 99283

== ENCOUNTER 2020-04-23 07:24 | Emergency (ER) | payer SELFPAY ==
[~2020-04-23] VITALS: Ht 167.6 cm; Wt 111.1 kg
[2020-04-23 07:32] VITALS: BP 171/94
--- NOTE | 2020-04-23 07:35 | NUR ---
PT TAKEN TO BED 11.
--- NOTE | 2020-04-23 07:38 | NUR ---
PT C/O ABSCESS ON LEFT ANTERIOR THIGH WITH PURULENT DRAINAGE S/P "POPPING PIMPLE" ON SATURDAY, PATIENT STATES AREA IS NOW SWOLLEN AND RED. PT DENIES ANY FEVER, CP, SOB, OR COUGH AT THIS TIME; PATIENT STATES PAIN OF 3/10 AT THIS TIME; VSS; PATIENT POSITIONED FOR COMFORT; HOB ELEVATED; BEDRAILS UP X2; BED DOWN. ER MD MADE AWARE OF PT STATUS.
--- NOTE | 2020-04-23 07:38 | NUR ---
Note undone in EDM - 04/23/20 at 0748 by MED PT C/O CELLULITIS ON LEFT ANTERIOR THIGH WITH PURULENT DRAINAGE S/P "POPPING PIMPLE" ON SATURDAY, PATIENT STATES AREA IS NOW SWOLLEN AND RED. PT DENIES ANY FEVER, CP, SOB, OR COUGH AT THIS TIME; PATIENT STATES PAIN OF 6/10 AT THIS TIME; VSS; PATIENT POSITIONED FOR COMFORT; HOB ELEVATED; BEDRAILS UP X2; BED DOWN. ER MD MADE AWARE OF PT STATUS.
--- NOTE | 2020-04-23 07:38 | NUR ---
Note undone in EDM - 04/23/20 at 0755 by MED PT C/O CELLULITIS ON LEFT ANTERIOR THIGH WITH PURULENT DRAINAGE S/P "POPPING PIMPLE" ON SATURDAY, PATIENT STATES AREA IS NOW SWOLLEN AND RED. PT DENIES ANY FEVER, CP, SOB, OR COUGH AT THIS TIME; PATIENT STATES PAIN OF 3/10 AT THIS TIME; VSS; PATIENT POSITIONED FOR COMFORT; HOB ELEVATED; BEDRAILS UP X2; BED DOWN. ER MD MADE AWARE OF PT STATUS.
[2020-04-23 07:54] VITALS: BP 145/89
--- NOTE | 2020-04-23 07:54 | NUR ---
Patient discharged with v/s stable. Written and verbal after care instructions given and explained. Patient alert, oriented and verbalized understanding of instructions. Ambulatory with steady gait. All questions addressed prior to discharge. ID band removed. Patient advised to follow up with PMD. Rx of BACTRIM, KEFLEX, AND MOTRIN given. Patient educated on indication of medication including possible reaction and side effects. Opportunity to ask questions provided and answered.
== END 2020-04-23 07:54 | disposition home or self-care (01) ==
LOC: MED 07:24
DX: L02.416 Cutaneous abscess of left lower limb (principal); E11.9 Type 2 diabetes mellitus without complications; I10 Essential (primary) hypertension; Z79.899 Other long term (current) drug therapy; Z96.653 Presence of artificial knee joint, bilateral
CPT/HCPCS: 99283

== ENCOUNTER 2021-07-13 18:44 | Emergency (ER) | payer OTHER, SELFPAY ==
[~2021-07-13] VITALS: Ht 167.6 cm; Wt 112.0 kg
[~2021-07-13 18:44] MED LIST changes: +ASPI-1822 PO; +ATOR10TA PO; -GLU500 PO; +LISI-486 PO; -LISI10TA11 PO; +METO25TA PO; -METO50TA99 PO; +OMEP-278 PO; -VANC1PLA7 IV
[2021-07-13 19:04] VITALS: BP 157/92
[2021-07-13 20:23] LABS: BASOPHILS % (AUTO) 0.1 % (0.0-2.0); HEMATOCRIT 37.4 % (36-52); HEMOGLOBIN 13.1 g/dL (12.0-18.0); LYMPHOCYTES # (AUTO) 0.6 K/uL (2.0-11.5); MEAN CORPUSCULAR HEMOGLOBIN 31 pg (27-31); MEAN CORPUSCULAR HGB CONC 35 g/dL (33-37); MEAN CORPUSCULAR VOLUME 87.4 fL (80-94); MONOCYTES # (AUTO) 0.3 K/uL (0.8-1.0); MONOCYTES % (AUTO) 5.8 % (1.7-9.3); NEUTROPHILS # (AUTO) 4.6 K/uL (1.8-7.7); NEUTROPHILS % (AUTO) 83.1 % (42.2-75.2); PLATELET COUNT (AUTO) 146 K/uL (140-450); RED BLOOD CELL COUNT(AUTO) 4.28 MIL/uL (4.20-6.10); RED CELL DISTRIBUTION WIDTH 13.3 % (11.6-13.7); WHITE BLOOD COUNT (AUTO) 5.6 K/uL (4.8-10.8)
[2021-07-13 20:42] LABS: MAGNESIUM 1.6 mg/dL (1.8-2.4); PHOSPHORUS 3.6 mg/dL (2.5-4.9)
[2021-07-13 20:45] LABS: ALBUMIN 3.8 g/dL (3.4-5.0); ANION GAP 11.5 (8-16); CARBON DIOXIDE 29.2 mmol/L (21-32); CREATININE 0.7 mg/dL (0.6-1.3); POTASSIUM 3.7 mmol/L (3.5-5.1); TOTAL BILIRUBIN 0.4 mg/dL (0.0-1.0)
--- NOTE | 2021-07-13 21:02 | NUR ---
Dr. Mahajan examining patient.
[2021-07-13] MEDS ORDERED: AZIT250T4 PO (21:11)
[2021-07-13] MEDS ORDERED: ALBU0.0912 INH (21:12)
[2021-07-13 21:29] VITALS: BP 157/92
[2021-07-13] MEDS: AZITHROMYCIN 250 MG TAB PO ONE (21:29)
--- NOTE | 2021-07-13 21:30 | NUR ---
Patient discharged with v/s stable. Written and verbal after care instructions given and explained. Patient verbalized understanding. Ambulatory with steady gait. All questions addressed prior to discharge. Advised to follow up with PMD.
== END 2021-07-13 21:30 | disposition home or self-care (01) ==
LOC: MED 18:44
DX: J18.9 Pneumonia, unspecified organism (principal); Z20.822 Contact with and (suspected) exposure to COVID-19; I10 Essential (primary) hypertension; F12.90 Cannabis use, unspecified, uncomplicated; F15.90 Other stimulant use, unspecified, uncomplicated; E11.9 Type 2 diabetes mellitus without complications; Z98.890 Other specified postprocedural states; Z79.899 Other long term (current) drug therapy; Z79.82 Long term (current) use of aspirin; Z85.9 Personal history of malignant neoplasm, unspecified
CPT/HCPCS: 36415; 71045; 80053; 83735; 83880; 84100; 84484; 85025; 93005; 99285; U0003

== ENCOUNTER 2023-02-20 15:44 | Emergency (ER) | payer OTHER ==
[~2023-02-20] VITALS: Ht 167.6 cm; Wt 113.4 kg
[~2023-02-20 15:44] MED LIST changes: +ALBU0.0912 INH; +AZIT250T4 PO
[2023-02-20 16:08] VITALS: BP 150/98; PULSE 95; RESP 20; TEMP 96.6; O2SAT 98
[2023-02-20 16:58] LABS: ANION GAP 15.3 (8-16); CARBON DIOXIDE 25.8 mmol/L (21-32); CREATININE 0.8 mg/dL (0.6-1.3); POTASSIUM 4.1 mmol/L (3.5-5.1)
[2023-02-20] MEDS ORDERED: metFORMIN 500 MG TAB PO ONE (17:05)
[2023-02-20] MEDS ORDERED: METF-346 PO (17:14)
--- NOTE | 2023-02-20 17:37 | NUR ---
PATIENT BIB [employer]. PATIENT EXAMINED BY DR. SHARMA. PATIENT MEDICALLY CLEARED AND RELEASED IN CUSTODY IN STABLE CONDITION. ORIGINAL PRE-BOOK FORM GIVEN TO OFFICER [place] [id number].
--- NOTE | 2023-02-20 17:40 | NUR ---
The patient's care was reviewed and supervised by Fanny Benavidez, RN, RN.
== END 2023-02-20 16:10 ==
LOC: MED 15:44
DX: Z02.89 Encounter for other administrative examinations (principal); E11.9 Type 2 diabetes mellitus without complications; E86.0 Dehydration; I10 Essential (primary) hypertension; Z79.899 Other long term (current) drug therapy; Z79.82 Long term (current) use of aspirin; Z79.2 Long term (current) use of antibiotics
CPT/HCPCS: 36415; 80048; 81002; 99283